=== PATIENT | female | born 1975 | race Two or more races ===

== ENCOUNTER 2019-02-18 08:16 | Outpatient (CLI) | payer OTHER | END 2019-02-18 08:27 | disposition home or self-care (01) | LOC: NUCLEAR 08:16 → EDBD 08:16 → NUCLEAR 08:27 | DX: M85.00 Fibrous dysplasia (monostotic), unspecified site (principal) | CPT/HCPCS: 78306; A9503 ==

== ENCOUNTER 2024-06-10 08:50 | Outpatient (CLI) | payer OTHER | END 2024-06-10 09:03 | disposition home or self-care (01) | LOC: TOM 08:50 | PROVIDERS: ATTEND Internal Medicine Gastroenterology | DX: K57.92 Diverticulitis of intestine, part unspecified, without perforation or abscess without bleeding (principal); C18.9 Malignant neoplasm of colon, unspecified; R19.5 Other fecal abnormalities; K56.609 Unspecified intestinal obstruction, unspecified as to partial versus complete obstruction; K59.00 Constipation, unspecified ==